=== PATIENT | female | born 1955 | race Caucasian/White ===

== ENCOUNTER 2018-09-19 09:12 | Emergency (ER) | payer BC ==
--- NOTE | 2018-09-19 09:53 | ED ---
GI/ HPI - HPI Summary HPI Summary: Patient is a 63 y/o F presenting to ED with complaints of bloody bowel movements and abdominal cramping. Sx onset last night, 09/18/18 and worsened today 09/19/18. She states that she was throwing water balloons with her grandchildren when she suddenly became hot, flushed, diaphoretic and experienced abdominal pain. Pain is characterized as a cramping sensation. Patient reports experiencing two episodes of diarrhea with no blood. Later, bowel movements became bloody. Patient reports having 3 episodes this morning. She states that the blood has either been bright red or dark red. PSHx of gastroplasty for weight loss 30+ years ago and breast surgery. She reports no Hx of issues with the gastroplasy. She additionally notes PSHx hysterectomy and D&C. Patient had colonoscopy in 2012 which is reported to have been normal. On triage, pain is rated 4/10, nothing is noted to aggravate/alleviate Sx. Home medications and allergies are reviewed. - History of Current Complaint Chief Complaint: EDGIBleed Time Seen by Provider: 09/19/18 09:32 Stated Complaint: RECTAL BLEEDING PER PT Hx Obtained From: Patient Onset/Duration: Started Days Ago - yesterday, 09/18/18, Still Present, Worse Since - 09/19/18, today Timing: Lasting Days - yesterday, 09/18/18, onset Severity: Moderate Current Severity: Moderate Pain Intensity: 4 Pain Characteristics: Cramping Associated Signs and Symptoms: Positive: Bright Red Blood w/Stool, Blood w/ Stool - dark red blood, Diarrhea, Diaphoresis, Abdominal Pain, Other: - hot, flushed Aggravating Factor(s): Nothing Alleviating Factor(s): Nothing - Allergy/Home Medications Allergies/Adverse Reactions: Allergies Allergy/AdvReac Type Severity Reaction Status Date / Time Penicillins Allergy Rash Verified 09/19/18 09:18 Sulfa (Sulfonamide Allergy Rash Verified 09/19/18 09:18 Antibiotics) Home Medications: Home Medications Levothyroxine Sodium 50 mcg PO DAILY 09/19/18 [History Confirmed 09/19/18] Lisinopril 10 mg PO DAILY 09/19/18 [History Confirmed 09/19/18] Omeprazole 20 mg PO DAILY 09/19/18 [History Confirmed 07/07/19] PMH/Surg Hx/FS Hx/Imm Hx Sensory History: Denies: Hx Legally Blind, Hx Deafness Opthamlomology History: Denies: Hx Legally Blind EENT History: Denies: Hx Deafness - Surgical History Surgery Procedure, Year, and Place: gastroplasty. D&C. breast surgery. hysterectomy Infectious Disease History: No Infectious Disease History: Denies: Traveled Outside the [place] in Last 30 Days - Family History Known Family History: Positive: Hypertension, Diabetes - Social History Alcohol Use: None Substance Use Type: Reports: None Smoking Status (MU): Never Smoked Tobacco Review of Systems Constitutional: Other - positive - hot, flushed Positive: Skin Diaphoresis Gastrointestinal: Other - positive - bloody bowel movements Positive: Abdominal Pain, Diarrhea All Other Systems Reviewed And Are Negative: Yes Physical Exam - Summary Physical Exam Summary: Appearance: The patient is well-nourished in no acute distress and in no acute pain. Skin: The skin is warm and dry and skin color reflects adequate perfusion. HEENT: The head is normocephalic and atraumatic. The pupils are equal and reactive. The conjunctivae are clear and without drainage. Nares are patent and without drainage. Mouth reveals moist mucous membranes and the throat is without erythema and exudate. The external ears are intact. The ear canals are patent and without drainage. The tympanic membranes are intact. Neck: The neck is supple with full range of motion and non-tender. There are no carotid bruits. There is no neck vein distension. Respiratory: Chest is non-tender. Lungs are clear to auscultation and breath sounds are symmetrical and equal. Cardiovascular: Heart is regular rate and rhythm. There is no murmur or rub auscultated. There is no peripheral edema and pulses are symmetrical and equal. Abdomen: The abdomen is soft and non-tender. There are normal bowel sounds heard in all four quadrants and there is no organomegaly palpated. Musculoskeletal: There is no back tenderness noted. Extremities are non-tender with full range of motion. There is good capillary refill. There is no peripheral edema or calf tenderness elicited. Neurological: Patient is alert and oriented to person, place and time. The patient has symmetrical motor strength in all four extremities. Cranial nerves are grossly intact. Deep tendon reflexes are symmetrical and equal in all four extremities. Psychiatric: The patient has an appropriate affect and does not exhibit any anxiety or depression. Triage Information Reviewed: Yes Vital Signs On Initial Exam: Initial Vitals Temp Pulse Resp BP Pulse Ox 97.6 F 93 14 127/75 98 09/19/18 09:15 09/19/18 09:15 09/19/18 09:15 09/19/18 09:15 09/19/18 09:15 Vital Signs Reviewed: Yes Diagnostics - Vital Signs Vital Signs Temp Pulse Resp BP Pulse Ox 09/19/18 09:15 97.6 F 93 14 127/75 98 - Laboratory Result Diagrams: 09/19/18 10:19 09/19/18 10:19 Lab Statement: Any lab studies that have been ordered have been reviewed, and results considered in the medical decision making process. - CT CT ABD/PEL CT Interpretation Completed By: Radiologist Summary of CT Findings: ABDOMEN AND PELVIS: Evaluation of the solid organs and vasculature is limited without intravenous contrast. Surgical material consistent with gastric bypass surgery is noted. The liver, spleen, pancreas and adrenal glands are grossly normal in appearance. The. gallbladder is normal. The kidneys are normal in appearance without focal mass, calcification or signs of. hydronephrosis. Evaluation of the gastrointestinal tract is limited in the absence of oral contrast. The. small and large bowel are not distended.The patient's normal appendix is identified in the. right lower quadrant measuring 4 mm in diameter (coronal image 41). There are scattered. colonic diverticula beginning as early as the base of the cecum. Beginning at the splenic. flexure and extending down the proximal portion of the descending colon there is an. appearance of circumferential wall thickening (axial image 34). With a mild degree of. pericolonic infiltration of the peritoneal fat. There is no gross retroperitoneal or mesenteric lymphadenopathy. Consistent with the patient's reported surgical history, the uterus is not seen. The mildly calcified abdominal aorta and iliac arteries are normal in course and diameter. Degenerative changes include multilevel loss of intervertebral disc height involving the. lower thoracic and lumbar spine.There are no sinister bone lesions. IMPRESSION: 1. Within the limitations of a non-IV, nonoral contrast CT examination, there is. potentially circumferential wall thickening and pericolonic inflammatory change involving. the proximal descending colon in the left hemiabdomen. Infectious or inflammatory colitis. are the most likely etiologies but inflammatory carcinoma is also on the differential. After the acute symptoms have resolved direct visualization is advised, particularly if. the patient has not recently had colonoscopy. 2. Additional chronic, degenerative and iatrogenic findings described in the body the report. THIS REPORT WAS REVIEWED BY DR. VALLE. Re-Evaluation - Re-Evaluation First Eval Re-Evaluation Time: 11:54 Comment: Results of labs, tests and consult discussed with patient, patient prescribed flagyl and cipro and to be discharged to home with Dr. Irhaeta follow up. She is agreeable with this. GIGU Course/Dx - Course Course Of Treatment: Ms. Lindsey started today with several episodes of crampy abdominal pain and just preceding bloody bowel movements. She was nontoxic in appearance with stable vital signs. Her exam was unremarkable. Her labs were good with a hemoglobin 12.5. CT showed an area in the proximal descending colon of inflammation. I discussed the differential with . He will follow her up. I will discharge her with instructions to return if her bleeding continues or worsens. She's had no further bowel movements that were bloody while here in the emergency department. I will give her a prescription for Cipro and Flagyl. - Diagnoses Provider Diagnoses: Colitis Discharge - Sign-Out/Discharge Documenting (check all that apply): Patient Departure - DISCHARGE Patient Received Moderate/Deep Sedation with Procedure: No - Discharge Plan Condition: Stable Disposition: HOME Prescriptions: Ciprofloxacin TAB* [Cipro Tab*] 500 mg PO BID #20 tab metroNIDAZOLE [Flagyl 500 MG TAB] 500 mg PO TID #30 tab Patient Education Materials: Colitis (ED) Referrals: Davon Easley DO [Primary Care Provider] - 3 Days Shane Iraheta DO [Doctor of Osteopathy] - 3 Days Additional Instructions: PLEASE RETURN TO ED FOR ANY NEW OR CONCERNING SYMPTOMS. FOLLOW UP WITH YOUR PRIMARY CARE PHYSICIAN AND DR. IRAHETA WITHIN THREE DAYS. - Billing Disposition and Condition Condition: STABLE Disposition: Home - Attestation Statements Document Initiated by Scribe: Yes Documenting Scribe: REESE SHELDON Provider For Whom Ruben is Documenting (Include Credential): DINA VALLE MD Scribe Attestation: REESE Koch, scribed for DINA VALLE MD on 09/19/18 at 1408. Scribe Documentation Reviewed: Yes Provider Attestation: The documentation as recorded by the REESE atkinson accurately reflects the service I personally performed and the decisions made by me, DINA VALLE MD Status of Scribe Document: Viewed
[2018-09-19 10:28] LABS: ABS Basophils 0.1 10^3/ul (0-0.2); ABS Eosinophils 0.1 10^3/ul (0-0.6); ABS Lymphocytes 1.1 10^3/ul (1.0-4.8); ABS Monocytes 0.7 10^3/ul (0-0.8); ABS Neutrophils 4.7 10^3/ul (1.5-7.7); Eosinophil % 1.6 %; Hematocrit 37 % (35-47); Hemoglobin 12.5 g/dL (12.0-16.0); Lymphocyte % 16.1 %; Mean Corpuscular HGB Conc 34 g/dL (31-36); Mean Corpuscular Hemoglobin 29 pg (27-31); Mean Corpuscular Volume 86 fL (80-97); Mean Platelet Volume 8.1 fL (7.4-10.4); Platelet Count 247 10^3/uL (150-450); Red Blood Count 4.31 10^6 /uL (3.70-4.87); Red Cell Distribution Width 14 % (10-15); White Blood Count 6.7 10^3/uL (3.5-10.8)
[2018-09-19 10:45] LABS: Albumin 3.5 g/dL (3.2-5.2); Albumin/Globulin Ratio 1.2 (1-3); BUN/Creatinine Ratio 16.2 (8-20); C Reactive Protein 9.13 mg/L (<8.01); Calcium 9.1 mg/dL (8.6-10.3); EGFR Non-African American 52.9 (>60); Potassium 4.4 mmol/L (3.5-5.0); Total Bilirubin 0.4 mg/dL (0.2-1.0); Total Protein 6.5 g/dL (6.4-8.9)
[2018-09-19 12:06] LABS: Urine Appearance Clear; Urine Bacteria Absent (Absent); Urine Bilirubin Negative (Negative); Urine Blood 1+ (Negative); Urine Color Yellow; Urine Glucose Negative (Negative); Urine Ketones Negative (Negative); Urine Nitrite Negative (Negative); Urine Protein Negative (Negative); Urine Red Blood Cell 1+(3-5/hpf) (Absent); Urine Specific Gravity 1.014 (1.010-1.030); Urine Squamous Epithelial Cell Present (Absent); Urine Urobilinogen Negative (Negative); Urine White Blood Cell Trace(0-5/hpf) (Absent)
[2018-09-19 12:07] VITALS: BP 120/75
== END 2018-09-19 12:07 | disposition home or self-care (01) ==
LOC: ED 09:12
DX: K52.9 Noninfective gastroenteritis and colitis, unspecified (principal); Z88.0 Allergy status to penicillin; Z88.2 Allergy status to sulfonamides; Z79.899 Other long term (current) drug therapy
CPT/HCPCS: 36415; 74176; 80053; 81003; 81015; 83605; 83690; 85025; 86140; 87077; 87086; 99283

== ENCOUNTER 2018-09-21 17:53 | Emergency (ER) | payer BC ==
--- NOTE | 2018-09-21 20:34 | ED ---
GI/ HPI - HPI Summary HPI Summary: 63 year [facility] F [facility] accompanied by Christos with a chief complaint of bloody stools since 09/18/18, worse since today . The patient rates the pain 0/10 in severity. Symptoms aggravated by nothing. Symptoms alleviated by nothing. Patient reports abdominal cramping, intermittent nausea. Patient denies abdominal pain, vomiting, dysuria. On 09/18/18 , patient had diarrhea, abdominal cramping, and bloody stools. She states that the blood started as light but progressed to chelsi. Patient was seen in ED on 09/19/[address] done which showed inflammation of intestines. Patient was discharged home with prescription for Cipro and Flagyl. Since then, patient has been constipated. Today, patient had dark, pasty, tarry stools so she called Dr. Easley, primary care provider, who recommended that patient go to ED. Patient has been taking Advil and Tylenol without relief. PMHx GERD, HTN. Denies PMHx ulcers, diabetes. Patient is not taking blood thinners. - History of Current Complaint Chief Complaint: EDGIBleed Time Seen by Provider: 09/21/18 20:19 Stated Complaint: RECTAL BLEEDING PER PT Hx Obtained From: Patient Onset/Duration: Started Days Ago - 3, Still Present, Worse Since - today 09/21/18 Current Severity: None Pain Intensity: 0 Associated Signs and Symptoms: Positive: Negative - abdominal pain, vomiting, dysuria, Other: - abdominal cramping, intermittent nausea Additional Signs & Symptoms: Positive: Other: - abdominal cramping, intermittent nausea; NEG: abdominal pain, vomiting, dysuria. Aggravating Factor(s): Nothing Alleviating Factor(s): Nothing - Allergy/Home Medications Allergies/Adverse Reactions: Allergies Allergy/AdvReac Type Severity Reaction Status Date / Time Penicillins Allergy Rash Verified 09/21/18 18:30 Sulfa (Sulfonamide Allergy Rash Verified 09/21/18 18:30 Antibiotics) PMH/Surg Hx/FS Hx/Imm Hx Previously Healthy: No Endocrine/Hematology History: Denies: Hx Diabetes Cardiovascular History: Reports: Hx Hypertension GI History: Reports: Hx Gastroesophageal Reflux Disease Denies: Hx Ulcer Sensory History: Denies: Hx Legally Blind, Hx Deafness Opthamlomology History: Denies: Hx Legally Blind - Surgical History Surgery Procedure, Year, and Place: gastroplasty. D&C. breast surgery. hysterectomy Infectious Disease History: No Infectious Disease History: Denies: Traveled Outside the [place] in Last 30 Days - Family History Known Family History: Positive: Hypertension, Diabetes - Social History Alcohol Use: None Hx Substance Use: No Substance Use Type: Reports: None Hx Tobacco Use: No Smoking Status (MU): Never Smoked Tobacco Review of Systems Positive: Nausea, Other - bloody stools, abdominal cramping. Negative: Abdominal Pain, Vomiting Negative: dysuria All Other Systems Reviewed And Are Negative: Yes Physical Exam - Summary Physical Exam Summary: Appearance: Well-appearing, Well-nourished, lying in bed comfortably Skin: Warm, dry, no obvious rash Eyes: sclera anicteric, no conjunctival pallor ENT: mucous membranes moist, pharynx appears normal Neck: Supple, nontender Respiratory: Clear to auscultation, no signs of respiratory distress Cardiovascular: Normal S1, S2. No murmurs. Normal distal pulses in tibial and radial bilaterally. Abdomen: Soft, nontender, normal active bowel sounds present Musculoskeletal: Normal, Strength/ROM Intact Neurological: A&Ox3, awake and alert, mentation is normal, speech is fluent and appropriate Psychiatric: affect is normal, does not appear anxious or depressed Rectal exam chaperoned by nurse Ifrah: There is dark red blood and dried blood about the perianal skin Triage Information Reviewed: Yes Vital Signs On Initial Exam: Initial Vitals Temp Pulse Resp BP Pulse Ox 98.2 F 80 16 132/86 98 09/21/18 18:27 09/21/18 18:27 09/21/18 18:27 09/21/18 18:27 09/21/18 18:27 Vital Signs Reviewed: Yes Diagnostics - Vital Signs Vital Signs Temp Pulse Resp BP Pulse Ox 09/21/18 18:27 98.2 F 80 16 132/86 98 - Laboratory Result Diagrams: 09/21/18 20:34 09/21/18 20:34 Lab Statement: Any lab studies that have been ordered have been reviewed, and results considered in the medical decision making process. Re-Evaluation - Re-Evaluation First Eval Re-Evaluation Time: 22:52 Comment: discussed discharge plan. she is agreeable to discharge GIGU Course/Dx - Course Course Of Treatment: 63 year old F referred to [facility] by primary care provider with a chief complaint of bloody stools since 09/18/18, worse since today 09/21/18. Patient reports abdominal cramping, intermittent nausea. Patient denies abdominal pain, vomiting, dysuria. On 09/18/18, patient had diarrhea, abdominal cramping, and bloody stools. She states that the blood started as light but progressed to chelsi. Patient was seen in ED on 09/19/[address] done which showed inflammation of intestines. Patient was discharged home with prescription for Cipro and Flagyl. Today, patient had dark, pasty, tarry stools so she called Dr. Henriquez, primary care provider, who recommended that patient go to ED. PMHx GERD, HTN. Denies PMHx ulcers, diabetes. Patient is not taking blood thinners. . Physical exam findings: There is dark red blood and dried blood about the perianal skin. Test results with no significant abnormalities except for creatinine 1.31, glucose 120. Stool sample was positive for blood. Patient will be discharged with follow up from Dr. Easley, primary care provider. She was instructed to continue the medication prescribed to her. She was instructed to return to the Emergency Department for new or worsening symptoms. The patient is agreeable with this plan. - Diagnoses Provider Diagnoses: Colitis Discharge - Sign-Out/Discharge Documenting (check all that apply): Patient Departure - dischage Patient Received Moderate/Deep Sedation with Procedure: No - Discharge Plan Condition: Good Disposition: HOME Patient Education Materials: Colitis (ED) Referrals: Davon Easley, [Primary Care Provider] - Additional Instructions: Keep your followup appt as scheduled. Continue the medication prescribed by Dr. Lauren. If you see signs that the bleeding is worsening again, or you start having significant pain, we should see you back here. - Billing Disposition and Condition Condition: GOOD Disposition: Home - Attestation Statements Document Initiated by Ruben: Yes Documenting Scribe: Erica Mejía Provider For Whom Ruben is Documenting (Include Credential): Nde Pelayo MD Scribe Attestation: Erica Koch, scribed for Ned Pelayo MD on 09/23/18 at 0400. Scribe Documentation Reviewed: Yes Provider Attestation: The documentation as recorded by the Erica atkinson accurately reflects the service I personally performed and the decisions made by me, Ned Pelayo MD Status of Ruben Document: Viewed
[2018-09-21 20:50] LABS: INR 1.09 (0.82-1.09)
[2018-09-21 20:56] LABS: ABS Basophils 0.1 10^3/ul (0-0.2); ABS Eosinophils 0.1 10^3/ul (0-0.6); ABS Lymphocytes 1.5 10^3/ul (1.0-4.8); ABS Monocytes 0.6 10^3/ul (0-0.8); ABS Neutrophils 3.5 10^3/ul (1.5-7.7); Eosinophil % 1.1 %; Hematocrit 39 % (35-47); Hemoglobin 13.1 g/dL (12.0-16.0); Lymphocyte % 25.9 %; Mean Corpuscular HGB Conc 33 g/dL (31-36); Mean Corpuscular Hemoglobin 29 pg (27-31); Mean Corpuscular Volume 86 fL (80-97); Mean Platelet Volume 8.3 fL (7.4-10.4); Nucleated Red Blood Cells % 0.1; Platelet Count 273 10^3/uL (150-450); Red Blood Count 4.52 10^6 /uL (3.70-4.87); Red Cell Distribution Width 14 % (10-15); White Blood Count 5.7 10^3/uL (3.5-10.8)
[2018-09-21 21:02] LABS: Albumin 3.8 g/dL (3.2-5.2); Albumin/Globulin Ratio 1.2 (1-3); Calcium 9.2 mg/dL (8.6-10.3); EGFR African American 49.6 (>60); Globulin 3.3 g/dL (2-4); Potassium 4.2 mmol/L (3.5-5.0); Total Bilirubin 0.5 mg/dL (0.2-1.0); Total Protein 7.1 g/dL (6.4-8.9)
[2018-09-21 23:02] VITALS: BP 118/77
== END 2018-09-21 23:01 | disposition home or self-care (01) ==
LOC: ED 17:53
DX: K52.9 Noninfective gastroenteritis and colitis, unspecified (principal); K21.9 Gastro-esophageal reflux disease without esophagitis; I10 Essential (primary) hypertension; Z88.2 Allergy status to sulfonamides; Z91.010 Allergy to peanuts
CPT/HCPCS: 36415; 80053; 82270; 85025; 85610; 86850; 86900; 86901; 99283